=== PATIENT | female | born 1995 | race African-American/Black ===

== ENCOUNTER 2020-10-23 03:18 | Emergency (ER) | payer OTHER ==
[~2020-10-23] VITALS: Ht 160 cm; Wt 60.8 kg
--- NOTE | 2020-10-23 03:42 | NUR ---
PATIENT CAME TO ER BED 7 BIBFRIEND C/O PERSISTENT COUGH FOR 6x DAYS. PATIENT WAS RECENTLY AT A SOCIAL GATHERING ABOUT 6x DAYS AGO. PATIENT IS NOT VACCINATED. PATIENT ALSO C/O SOB, HEADACHE, AND SORE THROAT. PATIENT IS ALERT AND ORIENTED x4. AMBULATORY WITH A STEADY GAIT. CONNECTED TO THE MONITOR. LAST TOOK NYQUIL 1x HOURS AGO.
[2020-10-23] MEDS ORDERED: predniSONE 20 MG TABLET ONE (04:01)
[2020-10-23] MEDS ORDERED: KETOROLAC TROMETHAMINE INJ 30 MG/ML VIAL ONE (04:01)
[2020-10-23] MEDS: KETOROLAC TROMETHAMINE INJ 30 MG/ML VIAL IM ONE (04:06)
[2020-10-23] MEDS: predniSONE 50 MG TABLET PO ONE (04:06)
--- NOTE | 2020-10-23 04:15 | NUR ---
RAD AT BEDSIDE
[2020-10-23] MEDS ORDERED: GUAIFENESIN/D-METHORPHAN HB 5 ML UDC ONE (04:33)
[2020-10-23] MEDS ORDERED: BENZ-13 PO (05:18)
[2020-10-23] MEDS ORDERED: GUAI600T53 PO (05:18)
[2020-10-23] MEDS ORDERED: AZIT250T13 PO (05:18)
[2020-10-23] MEDS ORDERED: IBUP-1957 PO (05:18)
[2020-10-23] MEDS: GUAIFENESIN/D-METHORPHAN HB 5 ML UDC PO ONE (05:39)
[2020-10-23] MEDS: BENZONATATE 100 MG CAPSULE PO PRN (05:40)
[2020-10-23 05:41] VITALS: BP 134/78
== END 2020-10-23 05:42 | disposition home or self-care (01) ==
LOC: ER 03:49
DX: U07.1 COVID-19 (principal)
CPT/HCPCS: 71045; 96372; 99283; J1885; J7512

== ENCOUNTER 2024-03-27 13:56 | Emergency (ER) | payer OTHER ==
[~2024-03-27] VITALS: Ht 160 cm; Wt 68.0 kg
[~2024-03-27 13:56] MED LIST: AZIT250T13 PO; BENZ-13 PO; GUAI600T53 PO; IBUP-1957 PO
[2024-03-27] MEDS ORDERED: diphenhydrAMINE HCL 50 MG/ML VIAL ONE (14:34)
[2024-03-27] MEDS ORDERED: METOCLOPRAMIDE HCL 10 MG/2 ML VIAL ONE (14:34)
[2024-03-27] MEDS ORDERED: ACETAMINOPHEN ES 500 MG TABLET ONE (14:34)
[2024-03-27 15:05] LABS: BASOPHILS % (AUTO) 0.9 % (0.0-2.0); EOSINOPHILS # (AUTO) 0.2 K/uL (0.0-0.7); HEMATOCRIT 41 % (33-45); HEMOGLOBIN 14.1 g/dL (11.5-14.8); LYMPHOCYTES # (AUTO) 1.6 K/uL (0.8-4.8); LYMPHOCYTES % (AUTO) 32.2 % (20.0-44.0); MEAN CORPUSCULAR HEMOGLOBIN 31 PG (26.0-33.0); MEAN CORPUSCULAR HGB CONC 35 g/dl (31.0-36.0); MEAN CORPUSCULAR VOLUME 89 fL (82-100); MONOCYTES # (AUTO) 0.3 K/uL (0.1-1.30); MONOCYTES % (AUTO) 6.9 % (2.0-12.0); NEUTROPHILS # (AUTO) 2.8 K/uL (1.8-8.9); PLATELET COUNT (AUTO) 231 K/uL (150-450); RED BLOOD CELL COUNT(AUTO) 4.58 MIL/uL (4.0-5.2)
[2024-03-27] MEDS: IV NS 0.9% 1,000 ML BAG IV ONE (15:13)
[2024-03-27] MEDS: ACETAMINOPHEN ES 500 MG TABLET PO ONE (15:15)
[2024-03-27] MEDS: diphenhydrAMINE HCL 50 MG/ML VIAL IV ONE (15:16)
[2024-03-27] MEDS: METOCLOPRAMIDE HCL 10 MG/2 ML VIAL IV ONE (15:17)
[2024-03-27 15:54] LABS: CALCIUM, SERUM 9.2 mg/dL (8.5-10.1); CREATININE 1.1 mg/dL (0.6-1.3); POTASSIUM 3.9 mmol/L (3.5-5.1)
[2024-03-27 18:07] VITALS: BP 111/47; TEMP 98.1; O2SAT 100
== END 2024-03-27 18:08 | disposition home or self-care (01) ==
LOC: ER 14:00
DX: S09.90XA Unspecified injury of head, initial encounter (principal); K08.89 Other specified disorders of teeth and supporting structures; Z79.1 Long term (current) use of non-steroidal anti-inflammatories (NSAID); W10.8XXA Fall (on) (from) other stairs and steps, initial encounter; Y93.89 Activity, other specified; Y92.89 Other specified places as the place of occurrence of the external cause; Y99.8 Other external cause status
CPT/HCPCS: 99285; 96374; 70450; 96361; 96375; 93005; 85025; 80048; 36415; 84702; J1200; J2765; J7030